=== PATIENT | male | born 1995 | race Caucasian/White ===

== ENCOUNTER 2020-10-05 15:12 | Emergency (ER) | payer OTHER, SELFPAY ==
--- NOTE | ~2020-10-05 | XR_ITS ---
EXAMINATION: XR chest 1V portable DATE: 10/05/2020 16:15 INDICATION: Shortness of breath. TECHNIQUE: A single frontal view of the chest was obtained. COMPARISON: None. FINDINGS: The chest demonstrates clear lungs without pneumonia, pleural effusion, or pneumothorax. Th e heart size is normal. IMPRESSION: 1. No acute cardiopulmonary disease. Reviewed, dictated and finalized at location A. [facility]
[2020-10-05 15:22] VITALS: BP 187/104; PULSE 80; RESP 14; TEMP 36.9; O2SAT 99
[2020-10-05 16:24] LABS: Basophils Percent Auto 0.4 % (0.2-1.2); Eosinophils Absolute Auto 0.4 K/mm3 (0-0.3); Eosinophils Percent Auto 4.5 % (0-4.4); Hematocrit 46.2 % (42.0-52.0); Hemoglobin 15.5 g/dL (14.0-18.0); Immature Granulocyte Absolute 0.02 K/mm3 (0.00-0.031); Immature Granulocyte Percent A 0.2 % (0-0.5); Lymphocytes Absolute Auto 1.68 K/mm3 (0.9-3.2); Lymphocytes Percent Auto 20.8 % (18.3-44.2); Mean Corpuscular HGB Conc 33.5 g/dl (32-36); Mean Corpuscular Hemoglobin 28.8 pg (26-34); Mean Corpuscular Volume 85.7 fl (80-100); Mean Platelet Volume 10.3 fl (7.4-10.4); Monocytes Absolute Auto 0.5 K/mm3 (0.1-0.6); Monocytes Percent Auto 6.7 % (2.6-8.5); Neutrophils Absolute Auto 5.4 K/mm3 (1.3-6.7); Neutrophils Percent Auto 67.4 % (45.5-73.1); Platelet Count Result 266 k/mm3 (150-375); Red Blood Count 5.39 M/mm3 (4.6-6.20); Red Cell Distribution Width 12.6 % (11.5-14.5); White Blood Count 8.1 K/mm3 (4.5-10.0)
[2020-10-05 16:39] LABS: Alanine Aminotransferase 36 U/L (4-50); Albumin Level 4.4 g/dL (3.5-5.1); Alkaline Phosphatase 102 U/L (38-126); Anion Gap 10 mmol/L (8-16); Aspartate Amino Transferase 35 U/L (17-59); Bilirubin,Total 0.4 mg/dL (0.2-1.3); Blood Urea Nitrogen 12 mg/dL (9-20); Calcium 9.4 mg/dL (8.4-10.2); Carbon Dioxide 27 mmol/L (22-30); Chloride 105 mmol/L (98-107); Estimated CRCL calculation 206 ml/min; Estimated Glomerular Filt Rate > 60; Glucose 113 mg/dL (75-110); Potassium 3.9 mmol/L (3.4-5.0); Sodium 142 mmol/L (137-145)
[2020-10-05 16:46] LABS: D Dimer 0.27 ug/mL (<0.48)
[2020-10-05 16:51] VITALS: BP 147/90; PULSE 73; RESP 95
[2020-10-05 17:38] VITALS: BP 144/95; PULSE 73; RESP 15; O2SAT 95
--- NOTE | 2020-10-05 17:38 | ED.GENADULT ---
HPI - General Adult General Chief complaint: Unspecified Stated complaint: sob, high blood pressure Time Seen by Provider: 10/05/20 15:51 Source: patient and family (mother) Mode of arrival: ambulatory Limitations: no limitations History of Present Illness HPI narrative: Patient presents with chief complaint of elevated blood pressure while he was at work. Patient states his blood pressure got to 190/105 so he became very concerned and began to clinic. Patient states he has had issues with anxiety as well as elevated blood pressure readings while being at work. Patient states he began having some epigastric discomfort but that has now improved as he is calm down. Patient states that whenever school starts he notices that his blood pressure increases as well as he starts having anxiety symptoms such as panicking and abdominal pain. Patient states when he is at home or is calm the symptoms resolved without intervention. Patient states that he was prescribed metoprolol by his primary care but at times he feels that it drops his heart rate too well and makes him feel too sluggish. Patient denies change in vision or hearing, headache, nausea, vomiting, diarrhea. Related Data Allergies Allergy/AdvReac Type Severity Reaction Status Date / Time No Known Allergies Allergy Verified 10/05/20 15:25 Review of Systems Review of Systems: Narrative: CONSTITUTIONAL: Denies fever, chills, or sweats. EYES: Denies visual changes, redness, or discharge. ENT: Denies rhinorrhea, congestion, sore throat, or otalgia. CARDIOVASCULAR: Denies chest pain, palpitations, or edema. RESPIRATORY: Denies cough or dyspnea. GASTROINTESTINAL: Reports abdominal pain, nausea, denies vomiting, or diarrhea. GENITOURINARY: Denies dysuria or hematuria. SKIN: Denies rash or itching. MUSCULOSKELETAL: Denies back pain, myalgia, or joint pain NEUROLOGIC: Denies headache, numbness, dizziness, or weakness. PSYCHIATRIC: Denies anxiety or depression. Exam Narrative: Exam Narrative: GENERAL: Well-appearing, well-nourished, and in no acute distress. HEAD: Normocephalic, atraumatic. EYES: PERRLA and EOMI. CHEST: Clear to auscultation. No respiratory distress. No wheezes rales or rhonchi HEART: Regular rate and rhythm. No murmur heard. Normal peripheral pulses. ABDOMEN: Soft, mild diffuse tenderness, no rigidity, no guarding, nondistended, normal active bowel sounds. EXTREMITIES: Normal range of motion. No edema. SKIN: Warm, dry, no rash. NEURO: No focal deficits. Alert and oriented x3. PSYCH: Normal mood and affect. Course Vital Signs Vital signs: Vital Signs Temperature 98.4 F 10/05/20 15:22 Pulse Rate 80 10/05/20 15:22 Respiratory Rate 14 10/05/20 15:22 Blood Pressure 187/104 H 10/05/20 15:22 Pulse Oximetry 99 10/05/20 15:22 Temperature 98.4 F 10/05/20 15:22 Pulse Rate 73 10/05/20 16:51 Respiratory Rate 95 H 10/05/20 16:51 Blood Pressure 147/90 H 10/05/20 16:51 Pulse Oximetry 99 10/05/20 15:22 Medical Decision Making MDM Narrative Medical decision making narrative: Patient states now that he is relaxed his abdominal discomfort has greatly improved. Patient and his mother both state that the patient has been struggling with anxiety symptoms in which she is due to talk to his primary care provider about possibly starting SS [facility]. 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 Patient's blood pressure has now come down to 140s over 90s without medical intervention. Patient and his mother has asked for a change in blood medications but due to the improvement of his blood pressure with just sitting in the emergency department and decreasing his anxiety I elected to make adjustments. I have instructed him to follow-up with his primary care to discuss blood pressure management as well as document his blood pressures throughout the day to present a log as well as to disc
[2020-10-05 17:56] VITALS: BP 144/95; PULSE 74; RESP 21; O2SAT 95
== END 2020-10-05 17:58 | disposition home or self-care (01) ==
PROVIDERS: Physician Assistant; Emergency Provider Family Medicine; PCP Family Medicine
DX: I10 Essential (primary) hypertension (principal)
CPT/HCPCS: 36415; 71045; 80053; 85025; 85380; 99283